=== PATIENT | male | born 1935 | race Caucasian/White ===

== ENCOUNTER 2016-11-01 15:50 | Emergency (ER) | payer MEDICARE ==
[2016-11-01 16:40] LABS: BLOOD UREA NITROGEN 16 mg/dL (7-18); CALCIUM 8.6 mg/dL (8.7-10.7); CARBON DIOXIDE 26 mmol/L (21-32); CREATININE 0.9 mg/dL (0.6-1.3); GLUCOSE,RANDOM 101 mg/dL (70-99); POTASSIUM 3.9 mmol/L (3.5-5.1); SODIUM 137 mmol/L (136-145)
[2016-11-01 17:09] LABS: PROTHROMBIN TIME (PATIENT) 10.4 SECONDS (9.6-10.8)
[2016-11-01 17:18] LABS: HEMOGLOBIN 14.3 g/dl (13.7-17.5); RED BLOOD COUNT 4.69 x10_6/ul (4.6-6.1); WHITE BLOOD COUNT 10.1 x10_3/ml (4.2-9.1)
[2016-11-01 17:19] LABS: GRAN # 5.8 10_X3_UL (1.8-5.4); HEMATOCRIT 41.8 % (40-51); LYMPH # 3.6 10_X3_UL (1.3-3.6); LYMPH % 35.7 % (21.8-53.1); MEAN CORPUSCULAR HEMOGLOBIN 30.5 pg (27.0-33.0); MEAN CORPUSCULAR HGB CONC 34.2 g/dl (32.0-36.0); MEAN CORPUSCULAR VOLUME 89.1 fl (79-92); MIXED # 0.7 10_X3_UL (0-12); MIXED % 7.3 % (1.7-9.3); PLATELET COUNT 190 x10_3/UL (163-337); RED CELL DISTRIBUTION WIDTH 13.6 % (11.6-14.4)
== END 2016-11-01 17:34 | disposition short-term general hospital (02) ==
LOC: ER 15:50
PROVIDERS: General Practice
DX: G51.0 Bell's palsy (principal); G31.9 Degenerative disease of nervous system, unspecified; I10 Essential (primary) hypertension; R51 Headache; J44.9 Chronic obstructive pulmonary disease, unspecified; R53.1 Weakness; G40.909 Epilepsy, unspecified, not intractable, without status epilepticus; G30.9 Alzheimer's disease, unspecified; F02.80 Dementia in other diseases classified elsewhere, unspecified severity, without behavioral disturbance, psychotic disturbance, mood disturbance, and anxiety; Z88.6 Allergy status to analgesic agent
CPT/HCPCS: 36415; 70450; 80048; 82962; 85025; 85610; 93005; 99070; 99284; 99285-25